=== PATIENT | male | born 1965 | race Caucasian/White ===

== ENCOUNTER → 2016-04-02 | Outpatient (CLI) | payer OTHER ==
[2016-04-02 14:22] LABS: BASO % 1 % (0-3); EOS % 1 % (0-3); HEMATOCRIT 42.5 % (39.0-53.0); HEMOGLOBIN 13.9 g/dL (13.0-17.5); LYMPH # 1.5 x10^3/uL (1.0-4.8); LYMPH % 23 % (24-48); MEAN CORPUSCULAR HEMOGLOBIN 30 pg (25-35); MEAN CORPUSCULAR HGB CONC 33 g/dL (31-37); MEAN CORPUSCULAR VOLUME 92 fL (79-100); MONO % 8 % (0-9); NEUT % 68 % (31-73); PLATELET COUNT 218 x10^3/uL (140-400); RED BLOOD COUNT 4.64 x10^6/uL (4.30-5.70); RED CELL DISTRIBUTION WIDTH 13.7 % (11.5-14.5); WHITE BLOOD COUNT 6.7 x10^3/uL (4.0-11.0)
[2016-04-02 15:13] LABS: ALBUMIN 3.9 g/dL (3.4-5.0); ALBUMIN/GLOBULIN RATIO 1.2 (1.0-1.7); CALCIUM 9.1 mg/dL (8.5-10.1); CHOLESTEROL/HDL RATIO 2.9; CREATININE 0.9 mg/dL (0.7-1.3); GFR 89.3; POTASSIUM 4.1 mmol/L (3.5-5.1); TOTAL BILIRUBIN 0.5 mg/dL (0.2-1.0); TOTAL PROTEIN 7.2 g/dL (6.4-8.2)
== END | disposition home or self-care (01) ==
LOC: LAB 13:33
PROVIDERS: ATTEND Family Medicine
DX: Z12.5 Encounter for screening for malignant neoplasm of prostate (principal); Z13.220 Encounter for screening for lipoid disorders; I10 Essential (primary) hypertension
CPT/HCPCS: 36415; 80053; 80061; 85027; G0103

== ENCOUNTER 2017-05-02 09:03 | Emergency (ER) | payer OTHER ==
[2017-05-02 09:54] LABS: INFLUENZA A PATIENT NEGATIVE (NEGATIVE); INFLUENZA B PATIENT NEGATIVE (NEGATIVE); OBC FLU VALID
== END 2017-05-02 10:31 | disposition home or self-care (01) ==
LOC: ER 09:03
DX: J20.8 Acute bronchitis due to other specified organisms (principal); B97.89 Other viral agents as the cause of diseases classified elsewhere; J45.909 Unspecified asthma, uncomplicated; I10 Essential (primary) hypertension; N40.0 Benign prostatic hyperplasia without lower urinary tract symptoms
CPT/HCPCS: 71046; 87804; 87804-59; 99285-25

== ENCOUNTER 2017-07-02 09:36 | Emergency (ER) | payer OTHER | END 2017-07-02 11:15 | disposition home or self-care (01) | LOC: ER 09:36 | DX: K08.89 Other specified disorders of teeth and supporting structures (principal); J45.909 Unspecified asthma, uncomplicated; I10 Essential (primary) hypertension | CPT/HCPCS: 99282 ==

== ENCOUNTER → 2017-11-01 | Day surgery (SDC) | payer OTHER ==
[~2017-11-01] MED LIST: BENZ100C PO; IBUP-1060 PO; IV RINGERS,LACTATED 1000ML 1,000 ML IV SCH; LIDOCAINE 2% PF 2ML VIAL. ONE; LISI-334 PO; PROPOFOL 40 ML IV ONE; TADA5TAB PO
--- NOTE | 2017-11-01 07:41 | CONS ---
DATE OF CONSULTATION: REASON FOR CONSULTATION: Colorectal screening. REFERRING PHYSICIAN: Dr. Melonie Gómez. HISTORY OF PRESENT ILLNESS: This is a 52-year-old male with past medical history significant for hypertension, status post hernia repair, seen for a screening colon exam. Bowel habits are regular without diarrhea or constipation. There has been no melena and/or hematochezia. Weight and appetite are stable. He has not undergone previous studies. He is otherwise without additional complaints. PAST MEDICAL HISTORY: Hypertension, status post hernia repair. ALLERGIES: None. MEDICATIONS: Include ibuprofen as needed, lisinopril 20 mg daily, and Cialis 5 mg daily. FAMILY AND SOCIAL HISTORY: Significant for diabetes with his father, high blood pressure with his mother. He is a former smoker, social drinker. REVIEW OF SYSTEMS: HEENT: There is no decrease in visual acuity issues. CARDIAC: There is history of hypertension. PULMONARY: History of bronchitis. NEUROLOGIC: No stroke, migraine, neuropathy. PSYCHIATRIC: No mood swings, depression, insomnia. GASTROINTESTINAL: See history of present illness. ENDOCRINE: No history of heat or cold intolerance, thyroid disease. HEMATOLOGIC: No bleeding, bruising, coagulopathy. DERMATOLOGIC: No skin rashes or pruritus. PHYSICAL EXAMINATION: VITAL SIGNS: Temperature is 97.6, pulse 63, respirations 18. HEENT: Reveals normocephalic and atraumatic head. Pupils and extraocular muscles are not tested. Sclerae are icteric. NECK: Supple. LUNGS: Clear. CARDIOVASCULAR: Reveals S1, S2 without S3, S4 or appreciable murmur. ABDOMEN: Reveals soft abdomen, normal bowel sounds without appreciable hepatosplenomegaly. EXTREMITIES: Reveals no cyanosis, clubbing, edema. IMPRESSION AND PLAN: Colorectal screening is warranted at this time. Risks and benefits of procedure including risk of hemorrhage or perforation have been discussed. The patient is willing to proceed. NATALIIA TREVIZO MD DR: DESEAN/jorge alberto JOB#: [id number] / [id number] MELONIE Campos MD
[2017-11-01 07:55] VITALS: BP 135/69
--- NOTE | 2017-11-04 15:10 | PATHOLOGY ---
[facility] Accession Number: [id number] . 01 Material submitted: . PART A: RECTAL POLYP PART B: DESCENDING COLON POLYP . 01 Clinical history: . CRCS . 02 Diagnosis: A. Colorectal biopsy, rectal polyp: - Hyperplastic polyp. . B. Colon biopsy, descending colon polyp: - Diminutive tubular adenoma. . (JPM/at;11/04/2017) QTA/11/04/2017 . 02 Comment: There is no high grade dysplasia or evidence of malignancy. . 02 Electronically signed: . Harry Payne MD, Pathologist NPI- [id number] . 01 Gross description: . A. Received in formalin labeled "Pluimer, Zhou, rectal polyp," is a single segment of gilbert soft tissue measuring 0.3 cm in maximum dimension. The specimen is entirely submitted in cassette A1. . B. Received in formalin labeled "Pluimer, Zhou, descending colon polyp," is a single segment of gilbert soft tissue measuring 0.3 cm in maximum dimension. The specimen is entirely submitted in cassette B1. (TSD; 11/01/2017) TOB/TOB . 02 Pathologist provided ICD-10: D12.4, K62.1 . 02 CPT . 996180, [id number] Specimen Comment: A courtesy copy of this report has been sent to Specimen Comment: [phone], . Specimen Comment: Report sent to and Performed at: 01 [facility] [address], [place], [place] [id number] MD Jr Shane MD Phone: [phone] Performed at: 02 [facility] [address], [place] [id number] MD Harry Payne MD Phone: [phone]
== END | disposition home or self-care (01) ==
LOC: ENDOS 05:53
PROVIDERS: ATTEND Internal Medicine Gastroenterology
DX: Z12.11 Encounter for screening for malignant neoplasm of colon (principal); D12.4 Benign neoplasm of descending colon; K62.1 Rectal polyp; K64.0 First degree hemorrhoids; I10 Essential (primary) hypertension; Z98.890 Other specified postprocedural states; Z79.899 Other long term (current) drug therapy; Z83.3 Family history of diabetes mellitus; Z82.49 Family history of ischemic heart disease and other diseases of the circulatory system; Z87.891 Personal history of nicotine dependence; Z72.89 Other problems related to lifestyle
CPT/HCPCS: 45385; 88305; J2001; J2704; 45380

== ENCOUNTER → 2019-09-02 | Outpatient (CLI) | payer OTHER ==
[2017-11-01 07:55] VITALS: BP 135/69
[~2019-09-02] MED LIST changes: -IV RINGERS,LACTATED 1000ML 1,000 ML IV SCH; -LIDOCAINE 2% PF 2ML VIAL. ONE; -PROPOFOL 40 ML IV ONE
== END | disposition home or self-care (01) ==
LOC: LAB 13:07
PROVIDERS: ATTEND Internal Medicine Pulmonary Disease
DX: Z20.828 Contact with and (suspected) exposure to other viral communicable diseases (principal)
CPT/HCPCS: U0003-CS

== ENCOUNTER → 2019-10-08 | Outpatient (CLI) | payer OTHER ==
[2017-11-01 07:55] VITALS: BP 135/69
[2019-10-08 09:11] LABS: BASO # 0.1 x10^3/uL (0.0-0.2); BASO % 1 % (0-3); EOS # 0.1 x10^3/uL (0.0-0.7); EOS % 1 % (0-3); HEMATOCRIT 43.4 % (39.0-53.0); HEMOGLOBIN 14.7 g/dL (13.0-17.5); LYMPH # 2.9 x10^3/uL (1.0-4.8); LYMPH % 35 % (24-48); MEAN CORPUSCULAR HEMOGLOBIN 31 pg (25-35); MEAN CORPUSCULAR HGB CONC 34 g/dL (31-37); MEAN CORPUSCULAR VOLUME 92 fL (79-100); MONO # 0.7 x10^3/uL (0.0-1.1); MONO % 9 % (0-9); NEUT # 4.4 x10^3/uL (1.8-7.7); NEUT % 54 % (31-73); PLATELET COUNT 269 x10^3/uL (140-400); RED BLOOD COUNT 4.71 x10^6/uL (4.30-5.70); RED CELL DISTRIBUTION WIDTH 13.7 % (11.5-14.5); WHITE BLOOD COUNT 8.2 x10^3/uL (4.0-11.0)
[2019-10-08 09:31] LABS: ALBUMIN/GLOBULIN RATIO 1.1 (1.0-1.7); CALCIUM 8.4 mg/dL (8.5-10.1); GFR 78.2; POTASSIUM 4.5 mmol/L (3.5-5.1); TOTAL BILIRUBIN 0.4 mg/dL (0.2-1.0); TOTAL PROTEIN 7.5 g/dL (6.4-8.2)
== END ==
LOC: LAB 08:46
PROVIDERS: ATTEND Family Medicine
DX: Z12.5 Encounter for screening for malignant neoplasm of prostate (principal); Z13.220 Encounter for screening for lipoid disorders; I10 Essential (primary) hypertension
CPT/HCPCS: 36415; 80053; 80061; 84153; 85025; G0103

== ENCOUNTER → 2020-02-22 | Outpatient (CLI) | payer OTHER ==
[2017-11-01 07:55] VITALS: BP 135/69
== END ==
LOC: LAB 08:21
PROVIDERS: ATTEND Internal Medicine Pulmonary Disease
DX: Z20.828 Contact with and (suspected) exposure to other viral communicable diseases (principal)
CPT/HCPCS: U0003

== ENCOUNTER → 2021-02-05 | Emergency (ER) | payer OTHER ==
[2017-11-01 07:55] VITALS: BP 135/69
[~2021-02-05] MED LIST changes: -LISI-334 PO; +LISI20TA18 PO
== END | disposition left against medical advice (07) ==
LOC: ER 19:41
DX: G44.009 Cluster headache syndrome, unspecified, not intractable (principal); Z53.21 Procedure and treatment not carried out due to patient leaving prior to being seen by health care provider